=== PATIENT | female | born 2000 ===

== ENCOUNTER 2021-11-10 00:18 | Inpatient (IN) ==
[2021-11-10] MEDS ORDERED: ONDANSETRON 4 MG/2 ML VIAL IV STA (00:58)
[2021-11-10] MEDS ORDERED: SODIUM CHLORIDE 0.9% 500 ML IV STA ×2 (00:58→02:06)
[2021-11-10 01:15] LABS: Basophils % 0.3 % (0.0-0.8); Eosinophils # 0.2 10*3/uL (0.0-0.87); Eosinophils % 1.8 % (0.00-10.9); Hematocrit 34.1 VOL% (35.7-47.0); Hemoglobin 11.6 GM/DL (12.0-16.0); Immature Granulocytes % 0.3 %; Immature Granulocytes Absolute 0.03 #; Lymphocytes # 2.8 10*3/uL (1.4-4.0); Lymphocytes % 27.6 % (21.3-54.2); Mean Platelet Volume 8.3 FL (9.6-12.0); Monocytes % 7.3 % (1.7-12.7); Neutrophils % 62.7 % (38.7-73.9); Platelet Count 381 T/CUMM (130-400); Red Blood Count 4.01 MC/CUMM (3.8-5.5); White Blood Count 10.1 T/CUMM (4-12)
[2021-11-10 01:22] LABS: Alanine Aminotransferase 15 U/L (13-56); Albumin 3.1 G/DL (3.4-5.0); Alkaline Phosphatase 102 U/L (45-117); Amylase 23 U/L (25-115); Aspartate Amino Transferase 20 U/L (0-37); Bilirubin,Total < 0.39 MG/DL (0.20-1.00); Blood Urea Nitrogen 16 MG/DL (7-18); Calcium 8.2 MG/DL (8.5-10.1); Carbon Dioxide 26 MMOL/L (21-32); Estimated Glom Filtration Rate 137 ML/MIN; Glucose 103 MG/DL (74-106); Osmolality,Calculated 277.5 MOS/KG (273-304); Potassium 3.9 MMOL/L (3.5-5.1); Sodium 139 MMOL/L (136-145); Total Protein 7.3 G/DL (6.4-8.2)
[2021-11-10 01:51] LABS: Urine Appearance SL CLOUDY (Clear); Urine Color Yellow (Yellow)
[2021-11-10 01:52] LABS: Bilirubin,Urine Negative (Negative); Blood, Urine Trace mg/dL (Negative); Glucose,Urine (UA) Negative (Negative); Ketones,Urine 80 mg/dL (Negative); Nitrite,Urine Positive (Negative); Protein,Urine 30 mg/dL (Negative); Urine Specific Gravity >= 1.030 (1.001-1.035)
[2021-11-10 01:54] LABS: Mucus,Urine Many /LPF (Occasional); RBC,Urine 8 /HPF (0-4); Squamous Epithelial Cell,Urine Occasional /HPF (0-10)
[2021-11-10] MEDS ORDERED: LEVOFLOXACIN INJ 750 MG/150 ML PREMIX IV STA (02:06)
[2021-11-10 02:17] LABS: Barbiturates Screen,Urine Negative (Negative); Benzodiazepines Screen,Urine Negative (Negative); Cannabinoid Screen,Urine Positive (Negative); Opiate Screen,Urine Positive (Negative); Phencyclidine Screen,Urine Negative (Negative)
[2021-11-10] MEDS ORDERED: ONDANSETRON 4 MG/2 ML VIAL IV PRN ×3 (08:08→13:19)
[2021-11-10] MEDS ORDERED: HYDROmorphone 1 MG/1 ML SYRINGE IV PRN (08:08)
[2021-11-10] MEDS ORDERED: ACETAMINOPHEN 325 MG TABLET PO PRN (08:08)
[2021-11-10] MEDS ORDERED: fentaNYL 100 MCG/2 ML VIAL ONE (11:48)
[2021-11-10] MEDS ORDERED: LIDOCAINE 2% 5 ML VIAL ONE (11:48)
[2021-11-10] MEDS ORDERED: propofoL 200 MG/20 ML VIAL IV ONE (11:48)
[2021-11-10] MEDS ORDERED: ROCURONIUM 50 MG/5 ML VIAL IV ONE (11:48)
[2021-11-10] MEDS ORDERED: MIDAZOLAM 2 MG/2 ML VIAL ONE (11:48)
[2021-11-10] MEDS ORDERED: PIPERACILLIN/TAZOBACTAM 3,375 MG VIAL IV ONE (12:13)
[2021-11-10] MEDS ORDERED: LACTATED RINGERS 1,000 ML IV SCH ×2 (12:30→13:00)
[2021-11-10] MEDS ORDERED: ONDANSETRON 4 MG/2 ML VIAL ONE (12:38)
[2021-11-10] MEDS ORDERED: SUGAMMADEX 200 MG/2 ML VIAL IV ONE (12:39)
[2021-11-10] MEDS ORDERED: BISACODYL 10 MG SUPP RECTAL PRN (12:58)
[2021-11-10] MEDS ORDERED: BENZOCAINE/MENTHOL LOZENGE 18/BOX PO PRN (12:58)
[2021-11-10] MEDS ORDERED: MAGNESIUM HYDROXIDE SUSP 30 ML UDCUP PO PRN (12:58)
[2021-11-10] MEDS: HYDROmorphone 1 MG/1 ML SYRINGE IV PRN ×2 (13:23→13:28)
[2021-11-10] MEDS ORDERED: KETOROLAC 30 MG/1 ML VIAL IV PRN (19:58)
[2021-11-10] MEDS: DOCUSATE SODIUM 100 MG CAPSULE PO PRN (20:14)
[2021-11-10] MEDS: PANTOPRAZOLE 40 MG TABLET PO SCH (20:14)
[2021-11-10] MEDS: PIPERACILLIN/TAZOBACTAM 3,375 MG in SODIUM CHLORIDE 0.9% 100 ML IV SCH (20:15)
[2021-11-10] MEDS: IBUPROFEN 800 MG TABLET PO PRN (23:24)
[2021-11-11] MEDS ORDERED: LACTATED RINGERS 1,000 ML IV SCH (03:44)
[2021-11-11] MEDS: PIPERACILLIN/TAZOBACTAM 3,375 MG in SODIUM CHLORIDE 0.9% 100 ML IV SCH ×3 (04:10→20:19)
[2021-11-11 05:52] LABS: Basophils % 0.3 % (0.0-0.8); Eosinophils # 0.4 10*3/uL (0.0-0.87); Eosinophils % 5.9 % (0.00-10.9); Hematocrit 31.6 VOL% (35.7-47.0); Hemoglobin 10.1 GM/DL (12.0-16.0); Immature Granulocytes % 0.1 %; Immature Granulocytes Absolute 0.01 #; Lymphocytes # 2.9 10*3/uL (1.4-4.0); Lymphocytes % 40.2 % (21.3-54.2); Mean Corpuscular Volume 89.3 FL (87-102); Mean Platelet Volume 8.3 FL (9.6-12.0); Monocytes % 6.7 % (1.7-12.7); Neutrophils % 46.8 % (38.7-73.9); Platelet Count 337 T/CUMM (130-400); Red Blood Count 3.54 MC/CUMM (3.8-5.5); White Blood Count 7.3 T/CUMM (4-12)
[2021-11-11] MEDS: DOCUSATE SODIUM 100 MG CAPSULE PO PRN ×2 (08:47→20:20)
[2021-11-11] MEDS: PANTOPRAZOLE 40 MG TABLET PO SCH (08:47)
[2021-11-11] MEDS: NICOTINE 14 MG/24 HR PATCH TRANSDERM SCH (19:06)
[2021-11-11] MEDS ORDERED: SIMETHICONE CHEW 80 MG TABLET PO PRN (19:48)
[2021-11-11] MEDS: DOXYCYCLINE HYCLATE 100 MG CAPSULE PO SCH (20:21)
[2021-11-12] MEDS: PIPERACILLIN/TAZOBACTAM 3,375 MG in SODIUM CHLORIDE 0.9% 100 ML IV SCH (04:10)
[2021-11-12 05:45] LABS: Basophils % 0.2 % (0.0-0.8); Eosinophils # 0.4 10*3/uL (0.0-0.87); Eosinophils % 5.9 % (0.00-10.9); Hematocrit 31.5 VOL% (35.7-47.0); Hemoglobin 10.2 GM/DL (12.0-16.0); Immature Granulocytes % 0.5 %; Immature Granulocytes Absolute 0.03 #; Lymphocytes # 2.3 10*3/uL (1.4-4.0); Lymphocytes % 36.3 % (21.3-54.2); Mean Corpuscular HGB Conc 32.4 GM/DL (32-36); Mean Corpuscular Volume 89.2 FL (87-102); Mean Platelet Volume 8.5 FL (9.6-12.0); Monocytes % 6.1 % (1.7-12.7); Platelet Count 355 T/CUMM (130-400); Red Blood Count 3.53 MC/CUMM (3.8-5.5); White Blood Count 6.4 T/CUMM (4-12)
[2021-11-12] MEDS: PANTOPRAZOLE 40 MG TABLET PO SCH (09:28)
[2021-11-12] MEDS: DOCUSATE SODIUM 100 MG CAPSULE PO PRN ×2 (09:28→19:07)
[2021-11-12] MEDS: DOXYCYCLINE HYCLATE 100 MG CAPSULE PO SCH ×3 (09:28→22:28)
[2021-11-12] MEDS: CIPROFLOXACIN INJ 400 MG/200 ML PREMIX IV SCH ×2 (10:56→23:04)
[2021-11-12] MEDS: NICOTINE 14 MG/24 HR PATCH TRANSDERM SCH (12:47)
[2021-11-12] MEDS: IBUPROFEN 800 MG TABLET PO PRN (19:07)
[2021-11-13 08:00] VITALS: BP 120/61
[2021-11-13] MEDS: PANTOPRAZOLE 40 MG TABLET PO SCH (08:25)
[2021-11-13] MEDS: DOCUSATE SODIUM 100 MG CAPSULE PO PRN (08:25)
[2021-11-13] MEDS: NICOTINE 14 MG/24 HR PATCH TRANSDERM SCH (08:25)
[2021-11-13] MEDS: DOXYCYCLINE HYCLATE 100 MG CAPSULE PO SCH (08:25)
[2021-11-13] MEDS: CIPROFLOXACIN INJ 400 MG/200 ML PREMIX IV SCH (11:53)
== END 2021-11-13 13:00 | disposition home or self-care (01) | DRG 531 ==
LOC: EDUNIT# → EDBD → N.ED 00:18 → N.EDINP 00:18 → N.OB 11:50
PROVIDERS: ADMIT Surgery; ATTEND Specialist